=== PATIENT | male | born 1990 | race Caucasian/White ===

== ENCOUNTER 2018-06-18 19:01 | Emergency (ER) | payer BC, MEDICAID, OTHER ==
[~2018-06-18] VITALS: Ht 167.6 cm; Wt 78.9 kg
[~2018-06-18 19:01] MED LIST: ACHD5005 PO; ALBU17AE3 IH; ATEN-158 PO; CEPH-507 PO; CYCL10TA9 PO; DICY20TA57 PO; DOXY100C2 PO; FLUT1DIS28 IH; HYDR-3583 PO; HYDR25TA4 PO; ISOM1CAP11 PO; LACO100T2 PO; LISI20TA PO; NAPR-243 PO; OMEP40CA36 PO; PHEN30CA PO; SENN1TAB76 PO; [UNRECOGNIZED DRUG - CODE] PO
--- OUTSIDE RECORDS SUMMARY | 2018-06-18 19:18 | XMS REPORT ---
Author Author Rowdy Carpenter [facility] Address [address] [place], [place] [id number] Care Team Providers Care Sole Leveler Name Role Phone Rowdy Carpenter PCP Unavailable Allergies and Adverse Reactions Name Reaction Notes Morphine Sulfate kidney failure IV DYE, IODINE CONTAINING body gruber and itches Plan of Treatment Not available. Medications Active Name Start Date Estimated Completion Date SIG Comments lamotrigine 25 mg oral tablet take 1 tablet (50 mg) by oral route once daily at bedtime, on an increasing dose levetiracetam 1,000 mg oral tablet take 2 tablet (2,000 mg) by oral route every 12 hours phenytoin sodium extended 100 mg oral capsule take 2 capsules (200 mg) by oral route 2 times per day felodipine 2.5 mg oral tablet extended release 24 hr 03/25/2015 09/21/2015 take 1 tablet (2.5 mg) by oral route once daily for 30 days Problem List Description Status Onset Asthma Active Brain Neoplasm, Benign Active October 2014 Hypertension Active Vital Signs Date Time BP-Sys(mm[Hg] BP-Sarahi(mm[Hg]) HR(bpm) RR(rpm) Temp WT HT HC BMI BSA BMI Percentile O2 Sat(%) 03/25/2015 2:02:00 PM 148 mmHg 84 mmHg 81 bpm 20 rpm 97.9 F 159 lbs 66 in 25.66 kg/m2 1.83 m2 96 % Social History Name Description Comments Tobacco Former smoker chewing tobacco No Alcohol Use Single History of Procedures Not available. Results Summary Not available. History Of Immunizations Not available. History of Past Illness Name Date of Onset Comments Hypertension Asthma Brain Neoplasm, Benign October 2014 Stage 2 glioma Hypertension Mar 25 2015 2:06PM Payers Insurance Name Company Name Plan Name Plan Number Policy Number Policy Group Number [facility] Date [id number] N/A [facility] Comm [id number] Friday, 2014 History of Encounters Visit Date Visit Type Provider 03/25/2015 Office visit Rowdy Carpenter DO
--- OUTSIDE RECORDS SUMMARY | 2018-06-18 19:18 | XMS REPORT | Encounter Summary ---
Author Author [facility] Organization [facility] Address Unknown Phone Unavailable Care Team Providers Care Resp Therapist Name Role Phone Leticiarandy Mahnaz Zavala LINUX SERVER ENGINEER-BC Unavailable Tramaine Thomas MD Unavailable Soraya Vargas MD Unavailable Bradford Diaz MD Unavailable Ileana Rodriguez LINUX SERVER ENGINEER-DEGREASING SOLUTION RECLAIMER Unavailable Katherine Kendrick LINUX SERVER ENGINEER Unavailable Anahi Currie MD Unavailable Annie Lyons RN 2 Unavailable Kelly Moeller DO Unavailable Unavailable Delio Dillon MD Unavailable Unavailable Delio Xie MD Unavailable Unavailable Mariano Deshpande MD Unavailable Betsy Armstrong MD [id number] Cara Brice MD [id number] Cindy Andrews MD PCP Reason for Visit * Reason Comments Seizure seizure free for more than 2 years Encounter Details Care Team Description Date Type Department Mariano Deshpande MD [address] [place] [address] Complex partial seizures with consciousness impaired (HCC) ( Primary Dx); Low grade glioma of brain (HCC) 04/12/2018 Office Visit [facility] Yo[address] Stock [id number] [place] [address] Social History Date Tobacco Use Types Packs/Day Years Used Never Smoker Smokeless Tobacco: Former Quit: 10/10/2012 User Alcohol Use Drinks/Week oz/Week Comments No Sex Assigned at Date Recorded Not on file Industry Job Start Date Occupation Not on file Not on file Not on file Travel End Travel History Travel Start No recent travel history available. as of this encounter Last Filed Vital Signs Time Taken Vital Sign Reading 04/12/2018 12:28 PM SCREEN PRINTING CLOTH SPREADER Blood Pressure 129/83 04/12/2018 12:28 PM SCREEN PRINTING CLOTH SPREADER Pulse 102 04/12/2018 12:28 PM SCREEN PRINTING CLOTH SPREADER Temperature 37 C (98.6 F) - Respiratory Rate - - Oxygen Saturation - - Inhaled Oxygen - Concentration 04/12/2018 12:28 PM SCREEN PRINTING CLOTH SPREADER Weight 77.1 kg (170 lb) 04/12/2018 12:28 PM SCREEN PRINTING CLOTH SPREADER Height 167.6 cm (5' 6") 04/12/2018 12:28 PM SCREEN PRINTING CLOTH SPREADER Body Mass Index 27.44 in this encounter Functional Status Date of Assessment Functional Status Response 04/23/2016 Does the patient have a hearing impairment: No 04/23/2016 Does the patient have a visual impairment: Yes 04/23/2016 Does the patient have impaired ambulation: No 04/23/2016 Does the patient have an activity of daily living No (ADL) impairment: 04/23/2016 Does the patient have an instrumental activity of No daily living (IADL) impairment: Date of Assessment Cognitive Status Response 04/23/2016 Does the patient have a cognitive impairment: No as of this encounter Patient Instructions * Patient Instructions* Mariano Deshpande MD - 04/12/2018 1:30 PM SCREEN PRINTING CLOTH SPREADER You should not drive unless 6 months free of alteration of consciousness, not work in close proximity of machines with moving parts, swim unsupervised or to work at high places.You should shower (without accumulation of water) instead of taking a bath if unsupervised. Contact us if there is an exacerbation of the seizures or any side effects from the antiepileptic medications. Continue Keppra 500 mg twice daily continue dilantin 100 mg twice daily. EN PRINTING CLOTH SPREADER in this encounter Progress Notes * Mariano Deshpande MD - 04/12/2018 1:30 PM SCREEN PRINTING CLOTH SPREADER Date of Service: 04/12/2018 Subjective: Srini Kevin is a 27 y.o. male. History of Present Illness MEDICATIONS: Keppra 500 mg b.i.d. , phenytoin 100 mg b.i.d. CHIEF COMPLAINT: 6 month follow-up on seizures and irritability. HISTORY OF PRESENT ILLNESS: Mr. Kevin has been doing well since last visit. He has not had any seizures. No seizure since the last visit. He denies any new problem. He does not use CBD oil. He has not had any seizure since the last visit. 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 Last seizure was a tonic seizure without any lateralizing finding lasting 3 minutes, with postictal confusion lasting about 1 hour in the setting of tapering down Keppra due to irritability. The seizure happened on June 25, 2015. He did not have any aura. He was playing video game before then. He has not had any seizure since then. Dr. Armstrong is his oncologist in [place]. His last MRI was 1.5 weeks ago and it was stable according to the patient. PAST MEDICAL HISTORY: Reviewed and did not show any change from the source document. SOCIAL HISTORY: Reviewed and did not show any change from the source document. Allergies Allergen Reactions Contrast Dye Iv, Iodine Containing [Iodinated Contrast Media - Oral And Iv Dye] RASH and SHORTNESS OF BREATH Morphine SEE COMMENTS "my kidneys shut down" LABS: 12/17/2016: PHT 2.5, CMP normal except increased ALT (67), CBC normal. Review of Systems All other systems reviewed and are negative. Objective: levETIRAcetam (KEPPRA) 500 mg tablet Take 1 tablet by mouth twice daily. phenytoin SR (DILANTIN) 100 mg capsule Take 1 capsule by mouth twice daily. PYRIDOXINE HCL (VITAMIN B6) (VITAMIN B-6 PO) Take 1 Tab by mouth. Vitals: 04/12/18 1228 BP: 129/83 Pulse: 102 Temp: 37 C (98.6 F) Weight: 77.1 kg (170 lb) Height: 167.6 cm (66") Physical Exam Head was normocephalic. His language functions were intact. He is right- handed. His attention was intact. His short-term memory was intact. Cranial nerve examination showed normal cranial nerves II through XII. Motor examination showed 5/5 in all muscles with normal tone. The tendon reflexes were 2+ in all 4 extremities and toes were downgoing on the right, mute on the left side. Sensory examination showed decreased tough in left face, arm and leg. Cerebellar examination did not show any limb or gait ataxia. Gait examination showed normal gait and able to walk heel to toe. Assessment and Plan: 1. Localization-related epilepsy secondary to the right frontal astrocytoma. The patient's seizures are currently well-controlled with Dilantin and Keppra. 2. Right astrocytoma followed by Dr. Armstrong. 3. CBC, CMP, dilantin level MANAGEMENT AND PLAN During the visit I discussed my impression, recommended diagnostic studies, prognosis, risks and benefits of management, instructions for management, and importance of compliance. The patient is instructed not to drive unless 6 months free of alteration of consciousness, not to work in close proximity of machines with moving parts, not to swim unsupervised or to work at high places. The patient is to shower ( without accumulation of water) instead of taking a bath if unsupervised. FOCUSED HEALTH MAINTENANCE: Smoking cessation counseling: No smoker Discussed patient's BMI with him. The body mass index is 27.44 kg/m. and falls within the category of Overweight (25 to <30); Specialist visit only - will refer back to primary doctor for further care. FOLLOWUP PLAN I plan to see the patient back for follow-up in approximately 6 months. The patient is instructed to contact us if there is an exacerbation of the seizures or any side effects from the antiepileptic medications. Mariano Deshpande MD Translator/Interpreter [facility] Department of Neurology EN PRINTING CLOTH SPREADER in this encounter Plan of Treatment Order Schedule Name Priority Associated Diagnoses Expected: 04/12/2018, Expires: 04/12/2019 CBC Routine Complex partial seizures with consciousness impaired (HCC) Expected: 04/12/2018 (Approximate), Expires: 04/12/2019 COMPREHENSIVE METABOLIC PANEL Routine Complex partial seizures with consciousness impaired (HCC) Expected: 04/12/2018 (Approximate), Expires: 04/12/2019 PHENYTOIN, TOTAL (DILANTIN) Routine Complex partial seizures with consciousness impaired (HCC) as of this encounter Visit Diagnoses Diagnosis Complex partial seizures with consciousness impaired (HCC) - Primary Localization-related (focal) (partial) epilepsy and epileptic syndromes with complex partial seizures, without mention of intractable epilepsy Low grade glioma of brain (HCC) Malignant neoplasm of brain, unspecified site in this encounter
--- OUTSIDE RECORDS SUMMARY | 2018-06-18 19:18 | XMS REPORT | Clinical Summary ---
Author Author [facility] Organization [facility] Address Unknown Phone Unavailable Care Team Providers Care Geospatial Extractor Analysis Name Role Phone Kelsi Mahnaz Zavala AUTOMATIC TYPEWRITER INSPECTOR-BC Unavailable Tramaine Thomas MD Unavailable Soraya Vargas MD Unavailable Bradford Diaz MD Unavailable Ileana Rodriguez AUTOMATIC TYPEWRITER INSPECTOR-SUPERVISOR WATER SOFTENER SERVICE Unavailable Katherine Kendrick AUTOMATIC TYPEWRITER INSPECTOR Unavailable Anaih Currie MD Unavailable Annie Lyons RN 2 Unavailable Kelly Moeller DO Unavailable Unavailable Delio Dillon MD Unavailable Unavailable Delio Xie MD Unavailable Unavailable Mariano Deshpande MD Unavailable Betsy Armstrong MD [id number] Cara Brice MD [id number] Cindy Andrews MD PCP Source Comments Some departments are not documenting in the electronic medical record. If you do not see the information that you expected, contact Release of Information in the Health Information Management department at [phone] for further assistance in locating additional records.[facility] Allergies Comments Active Allergy Reactions Severity Noted Date Iodinated Contrast- Oral RASH, High 10/10/2014 And Iv Dye SHORTNESS OF BREATH "my kidneys shut down" Morphine SEE COMMENTS High 10/10/2014 Medications End Date Status Medication Sig Dispensed Refills Start Date Active levETIRAcetam (KEPPRA) Take one 180 tablet 3 500 mg tabletIndications: tablet by 8 Complex partial seizures mouth twice with consciousness daily. impaired (HCC) Active phenytoin SR (DILANTIN) Take one 180 capsule 3 100 mg capsule capsule by 8 mouth twice daily. Active Problems Problem Noted Date Seizure 10/21/2014 Low grade glioma of brain 10/10/2014 Asthma Hypertension Resolved Problems Problem Noted Date Resolved Date UTI (urinary tract infection) 10/26/2014 12/01/2014 Leukocytosis 10/22/2014 12/01/2014 On mechanically assisted ventilation 10/21/2014 12/01/2014 Encounters Care Team Description Date Type Specialty Mariano Deshpande MD Complex partial seizures with consciousness impaired (HCC) ( Primary Dx); Low grade glioma of brain (HCC) 04/12/2018 Office Visit Neurology from Last 3 Months Family History Medical History Relation Name Comments Diabetes Mother Diabetes Paternal Grandfather Hypertension Paternal Grandfather Diabetes Paternal Grandmother Hypertension Paternal Grandmother Relation Name Status Comments Father Other Mother Alive Paternal Grandfather Alive Paternal Grandmother Alive Social History Date Tobacco Use Types Packs/Day Years Used Never Smoker Smokeless Tobacco: Former Quit: 10/10/2012 User Alcohol Use Drinks/Week oz/Week Comments No Sex Assigned at Date Recorded Not on file Industry Job Start Date Occupation Not on file Not on file Not on file Travel End Travel History Travel Start No recent travel history available. Last Filed Vital Signs Time Taken Vital Sign Reading 04/12/2018 12:28 PM TOY CONSULTANT Blood Pressure 129/83 04/12/2018 12:28 PM TOY CONSULTANT Pulse 102 04/12/2018 12:28 PM TOY CONSULTANT Temperature 37 C (98.6 F) 04/23/2016 10:40 AM TOY CONSULTANT Respiratory Rate 18 04/23/2016 10:40 AM TOY CONSULTANT Oxygen Saturation 99% - Inhaled Oxygen - Concentration 04/12/2018 12:28 PM TOY CONSULTANT Weight 77.1 kg (170 lb) 04/12/2018 12:28 PM TOY CONSULTANT Height 167.6 cm (5' 6") 04/12/2018 12:28 PM TOY CONSULTANT Body Mass Index 27.44 Plan of Treatment Health Maintenance Due Date Last Done Comments PHYSICAL (COMPREHENSIVE) 09/18/1999 EXAM HIV SCREENING 09/18/2007 DTAP/TDAP VACCINES (1 - 2010 Tdap) INFLUENZA VACCINE 12/15/2017 03/05/2005 Results Not on filefrom Last 3 Months Insurance Payer Benefit Subscriber ID Type Phone Address Plan / Group CIGNA CIGNA NON xxxxxxxxxxx HMO PPO/EPO [facility] MEDICAID [place] [facility] xxxxxxxxxxx Medicaid [employer] [place] Advance Directives Patient has advance care planning documents, and code status on file. For more information, please contact: [facility] [address] [place] [address] Date Inactivated Comments Code Status Date Activated 10/31/2014 12:48 PM Full Code 10/10/2014 5:24 AM Provider has discussed Code Status Yes w/Patient or Family?
--- OUTSIDE RECORDS SUMMARY | 2018-06-18 19:21 | XMS REPORT | Continuity of Care Document ---
Author Author [facility] Address Unknown Phone Unavailable Allergies Active Description Code Type Severity Reaction Onset Reported/Identified Relationship to Patient Clinical Status Yes TAWANDA INHIBITORS UNKNOWN UNKNOWN Yes CONTRAST SEVERE DERMATOLOGICAL - ZAYDA Yes MORPHINE SEVERE OTHER Yes morphine [id number] Drug Allergy Mild N/A 04/13/2009 Yes Iodinated Contrast Media - IV Dye [id number] Drug Allergy Unknown N/A 10/31 Yes Iodinated Contrast Media - Oral and [id number] Drug Allergy Unknown N/A Medications There is no data. Problems Date Dx Coded Attending Type Code Diagnosis Diagnosed By 03/23/2010 Ot 923.21 03/23/2010 Ot 959.3 03/23/2010 Ot E000.8 03/23/2010 Ot E007.0 03/23/2010 Ot E849.4 03/23/2010 Ot E886.0 06/23/2010 Ot 372.06 06/23/2010 Ot 918.1 06/23/2010 Ot 918.2 06/23/2010 Ot E000.8 06/23/2010 Ot E849.6 06/23/2010 Ot E869.8 06/23/2010 Ot E914 09/19/2010 Ot 815.00 FX METACARPAL NOS-CLOSED 09/19/2010 Ot 842.00 SPRAIN OF WRIST NOS 09/19/2010 Ot 959.3 ELB/FOREARM/ WRST INJ NOS 09/19/2010 Ot E000.8 OTHER EXTERNAL CAUSE STATUS 09/19/2010 Ot E849.0 ACCIDENT IN HOME 09/19/2010 Ot E880.9 FALL ON STAIR/STEP NEC 10/03/2010 Ot 913.4 10/03/2010 Ot E000.8 10/03/2010 Ot E849.0 10/03/2010 Ot E906.4 12/21/2010 Ot 847.0 12/21/2010 Ot 850.0 12/21/2010 Ot 920 12/21/2010 Ot 959.01 12/21/2010 Ot E000.8 12/21/2010 Ot E812.0 01/11/2011 Ot 784.0 08/23/2011 Ot 845.00 08/23/2011 Ot 959.7 08/23/2011 Ot E000.8 08/23/2011 Ot E007.6 08/23/2011 Ot E849.0 08/23/2011 Ot E927.0 11/09/2011 Ot 881.02 11/09/2011 Ot E000.8 11/09/2011 Ot E849.0 11/09/2011 Ot E927.0 11/17/2011 Ot V58.32 01/25/2012 Ot 574.20 01/25/2012 Ot 789.00 02/16/2012 Ot 530.81 02/16/2012 Ot 535.40 02/16/2012 Ot 575.11 02/02/2014 TYLER JONES APRN Ot 401.9 HYPERTENSION NOS 02/02/2014 TYLER JONES APRN Ot V58.69 OT MED,LT,CURRENT USE 03/23/2014 BRIGETTE SUMMERS DO Ot 401.9 HYPERTENSION NOS 08/09/2014 Ot 558.9 08/09/2014 Ot 780.79 08/09/2014 Ot 789.00 08/09/2014 Ot 558.9 08/09/2014 Ot 780.79 08/09/2014 Ot 789.00 10/09/2014 Ot 789.00 10/09/2014 Ot 787.01 10/09/2014 Ot 789.01 10/09/2014 Ot 787.01 10/09/2014 Ot 789.01 10/09/2014 Ot 575.8 10/09/2014 Ot 787.02 10/09/2014 Ot 789.01 10/09/2014 Ot V72.83 10/09/2014 Ot V74.8 10/10/2014 STEPHANIE OLMOS Ot 368.8 VISUAL DISTURBANCES NEC 10/10/2014 STEPHANIE OLMOS Ot 784.0 HEADACHE 10/10/2014 STEPHANIE OLMOS Ot 784.2 SWELLING IN HEAD NECK 10/30/2014 Ot 789.00 10/30/2014 Ot 787.01 10/30/2014 Ot 789.01 10/30/2014 Ot 787.01 10/30/2014 Ot 789.01 10/30/2014 Ot 575.8 10/30/2014 Ot 787.02 10/30/2014 Ot 789.01 10/30/2014 Ot V72.83 10/30/2014 Ot V74.8 10/30/2014 Ot 789.00 10/30/2014 Ot 787.01 10/30/2014 Ot 789.01 10/30/2014 Ot 787.01 10/30/2014 Ot 789.01 10/30/2014 Ot 575.8 10/30/2014 Ot 787.02 10/30/2014 Ot 789.01 10/30/2014 Ot V72.83 10/30/2014 Ot V74.8 11/06/2014 ASHWIN RIVERA MD Ot 401.9 HYPERTENSION NOS 11/06/2014 ASHWIN RIVERA MD Ot V10.85 HX OF BRAIN MALIGNANCY 11/06/2014 ASHWIN RIVERA MD Ot V15.82 HISTORY OF TOBACCO USE 11/06/2014 ASHWIN RIVERA MD Ot V57.89 REHABILITATION PROC NEC 11/06/2014 ASHWIN RIVERA MD Ot V58.42 AFTERCARE POST SURGERY NEOPLASM 11/30/2014 FREYA GRAVES MD Ot 239.6 11/30/2014 FREYA GRAVES MD Ot 780.39 12/13/2014 FREYA GRAVES MD Ot 239.6 12/13/2014 FREYA GRAVES MD Ot 780.39 12/13/2014 FREYA GRAVES MD Ot 239.6 12/13/2014 FREYA GRAVES MD Ot 780.39 12/14/2014 FREYA GRAVES MD Ot 239.6 12/14/2014 FREYA GRAVES MD Ot 780.39 12/14/2014 FREYA GRAVES MD Ot 239.6 12/14/2014 FREYA GRAVES MD Ot 780.39 12/14/2014 FREYA GRAVES MD Ot 239.6 12/14/2014 FREYA GRAVES MD Ot 780.39 12/19/2014 Ot 558.9 12/19/2014 Ot 780.79 12/19/2014 Ot 789.00 12/24/2014 STEPHANIE OLMOS Ot 704.8 HAIR DISEASES NEC 12/24/2014 STEPHANIE OLMOS Ot 782.1 NONSPECIF SKIN ERUPT NEC 01/03/2015 STEPHANIE OLMOS Ot 780.97 ALTERED MENTAL STATUS 01/03/2015 STEPHANIE OLMOS Ot E936.1 ADV EFF HYDANTOIN DERIV 01/03/2015 STEPHANIE OLMOS Ot V12.41 HX BENIGN NEOPLASM/BRAIN 01/10/2015 ARAVIND PRESTON MD Ot 368.2 DIPLOPIA 01/10/2015 ARAVIND PRESTON MD Ot 780.4 DIZZINESS AND GIDDINESS 01/10/2015 ARAVIND PRESTON MD Ot V58.69 OT MED,LT,CURRENT USE 01/31/2015 STEPHANIE OLMOS Ot 239.6 01/31/2015 STEPHANIE OLMOS Ot V58.69 02/08/2015 Ot 558.9 02/08/2015 Ot 780.79 02/08/2015 Ot 789.00 02/18/2015 FREYA GRAVES MD Ot 239.6 02/18/2015 FREYA GRAVES MD Ot 780.39 02/18/2015 FREYA GRAVES MD Ot 239.6 02/18/2015 FREYA GRAVES MD Ot 780.39 02/18/2015 FREYA GRAVES MD Ot 239.6 02/18/2015 FREYA GRAVES MD Ot 780.39 02/18/2015 STEPHANIE OLMOS Ot 239.6 02/18/2015 STEPHANIE OLMOS Ot V58.69 03/18/2015 FREYA GRAVES MD Ot 239.6 03/18/2015 FREYA GRAVES MD Ot 780.39 03/18/2015 FREYA GRAVES MD Ot 239.6 03/18/2015 FREYA GRAVES MD Ot 780.39 03/18/2015 FREYA GRAVES MD Ot 239.6 03/18/2015 FREYA GRAVES MD Ot 780.39 03/18/2015 STEPHANIE OLMOS Ot 239.6 03/18/2015 STEPHANIE OLMOS Ot V58.69 03/26/2015 FREYA GRAVES MD Ot 239.6 03/26/2015 FREYA GRAVES MD Ot 780.39 03/26/2015 FREYA GRAVES MD B Ot 239.6 03/26/2015 FREYA GRAVES MD B Ot 780.39 03/26/2015 FREYA GRAVES MD B Ot 239.6 03/26/2015 FREYA GRAVES MD B Ot 780.39 03/26/2015 STEPHANIE OLMOS Ot 239.6 03/26/2015 STEPHANIE OLMOS Ot V58.69 03/26/2015 FREYA GRAVES MD B Ot 239.6 03/26/2015 FREYA GRAVES MD B Ot 780.39 03/26/2015 FREYA GRAVES MD B Ot 239.6 03/26/2015 FREYA GRAVES MD B Ot 780.39 03/26/2015 FREYA GRAVES MD B Ot 239.6 03/26/2015 FREYA GRAVES MD B Ot 780.39 03/26/2015 STEPHANIE OLMOS Ot 239.6 03/26/2015 STEPHANIE OLMOS Ot V58.69 07/04/2015 OTHER, UNLISTED Ot N46.9 07/12/2015 OTHER, UNLISTED Ot N46.9 07/23/2015 OTHER, UNLISTED Ot N46.9 09/05/2015 OTHER, UNLISTED Ot N46.9 MALE INFERTILITY, UNSPECIFIED 11/03/2015 Ot S51.812A LACERATION WITHOUT FOREIGN BODY OF LEFT 11/03/2015 Ot W27.2XXA CONTACT WITH SCISSORS, INITIAL ENCOUNTER 11/03/[address] IN SINGLE-FAMILY (PRIVATE) DOM 11/03/2015 Ot Y99.8 OTHER EXTERNAL CAUSE STATUS 11/03/2015 Ot Z23 ENCOUNTER FOR IMMUNIZATION 11/03/2015 Ot Z87.891 PERSONAL HISTORY OF NICOTINE DEPENDENCE 11/04/2015 FREYA GRAVES MD Ot 239.6 BRAIN NEOPLASM NOS 11/04/2015 FREYA GRAVES MD Ot 780.39 OTHER CONVULSIONS 11/04/2015 FREYA GRAVES MD Ot 239.6 BRAIN NEOPLASM NOS 11/04/2015 FREYA GRAVES MD Ot 780.39 OTHER CONVULSIONS 11/04/2015 FREYA GRAVES MD Ot 239.6 BRAIN NEOPLASM NOS 11/04/2015 FREYA GRAVES MD Ot 780.39 OTHER CONVULSIONS 11/04/2015 STEPHANIE OLMOS Ot 239.6 BRAIN NEOPLASM NOS 11/04/2015 STEPHANIE OLMOS Ot V58.69 OTH MED,LT,CURRENT USE 11/04/2015 OTHER, UNLISTED Ot N46.9 MALE INFERTILITY, UNSPECIFIED 11/14/2015 ARAVIND PRESTON MD Ot S41.112D LACERATION W/O FOREIGN BODY OF LEFT UPPE 11/15/2015 ARAVIND PRESTON MD Ot S41.112D LACERATION W/O FOREIGN BODY OF LEFT UPPE 11/26/2015 FREYA GRAVES MD Ot 239.6 BRAIN NEOPLASM NOS 11/26/2015 FREYA GRAVES MD Ot 780.39 OTHER CONVULSIONS 11/26/2015 FREYA GRAVES MD Ot 239.6 BRAIN NEOPLASM NOS 11/26/2015 FREYA GRAVES MD Ot 780.39 OTHER CONVULSIONS 11/26/2015 FREYA GRAVES MD Ot 239.6 BRAIN NEOPLASM NOS 11/26/2015 FREYA GRAVES MD Ot 780.39 OTHER CONVULSIONS 11/26/2015 STEPHANIE OLMOS Ot 239.6 BRAIN NEOPLASM NOS 11/26/2015 STEPHANIE OLMOS Ot V58.69 OTH MED,LT,CURRENT USE 11/26/2015 OTHER, UNLISTED Ot N46.9 MALE INFERTILITY, UNSPECIFIED 01/17/2016 FREYA GRAVES MD Ot 239.6 BRAIN NEOPLASM NOS 01/17/2016 FREYA GRAVES MD Ot 780.39 OTHER CONVULSIONS 01/17/2016 FREYA GRAVES MD Ot 239.6 BRAIN NEOPLASM NOS 01/17/2016 FREYA GRAVES MD Ot 780.39 OTHER CONVULSIONS 01/17/2016 FREYA GRAVES MD B Ot 239.6 BRAIN NEOPLASM NOS 01/17/2016 FREYA GRAVES MD B Ot 780.39 OTHER CONVULSIONS 01/17/2016 STEPHANIE OLMOS Ot 239.6 BRAIN NEOPLASM NOS 01/17/2016 STEPHANIE OLMOS Ot V58.69 OTH MED,LT,CURRENT USE 01/17/2016 OTHER, UNLISTED Ot N46.9 MALE INFERTILITY, UNSPECIFIED 03/01/2016 AMA GRAVES MDZ B Ot 239.6 BRAIN NEOPLASM NOS 03/01/2016 STAR HYDE, JESEKOZ B Ot 780.39 OTHER CONVULSIONS 03/01/2016 JESE GRAVES MDKOZ B Ot 239.6 BRAIN NEOPLASM NOS 03/01/2016 STAR HYDE, ROUKOZ B Ot 780.39 OTHER CONVULSIONS 03/01/2016 AMA GRAVES MDZ B Ot 239.6 BRAIN NEOPLASM NOS 03/01/2016 JESE GRAVES MDKOZ B Ot 780.39 OTHER CONVULSIONS 03/01/2016 CADE STEPHANIE FLOWERS Ot 239.6 BRAIN NEOPLASM NOS 03/01/2016 STEPHANIE OLMOS Ot V58.69 OTH MED,LT,CURRENT USE 03/01/2016 OTHER, UNLISTED Ot N46.9 MALE INFERTILITY, UNSPECIFIED 03/01/2016 TYLER JONES APRN Ot I10 ESSENTIAL (PRIMARY) HYPERTENSION 03/01/2016 TYLER JONES APRN Ot S93.401A SPRAIN OF UNSPECIFIED LIGAMENT OF RIGHT 03/01/2016 TYLER JONES APRN Ot S99.911A UNSPECIFIED INJURY OF RIGHT ANKLE, INITI 03/01/2016 TYLER JONES APRN Ot X58.XXXA EXPOSURE TO OTHER SPECIFIED FACTORS, INI 03/01/2016 TYLER JONES APRN Ot Y92.015 PRIVATE GARAGE OF SINGLE-FAMILY (PRIVATE 03/01/2016 TYLER JONES APRN Ot Y93.01 ACTIVITY, WALKING, MARCHING AND HIKING 03/01/2016 TYLER JONES APRN Ot Y99.8 OTHER EXTERNAL CAUSE STATUS 03/01/2016 TYLER JONES APRN Ot Z79.899 OTHER PRISON (CURRENT) DRUG THERAPY 03/04/2016 TYLER JONES APRN Ot I10 ESSENTIAL (PRIMARY) HYPERTENSION 03/04/2016 TYLER JONES APRN Ot S93.401A SPRAIN OF UNSPECIFIED LIGAMENT OF RIGHT 03/04/2016 TYLER JONES APRN Ot S99.911A UNSPECIFIED INJURY OF RIGHT ANKLE, INITI 03/04/2016 TYLER JONES APRN Ot X58.XXXA EXPOSURE TO OTHER SPECIFIED FACTORS, INI 03/04/2016 TYLER JONES APRN Ot Y92.015 PRIVATE GARAGE OF SINGLE-FAMILY (PRIVATE 03/04/2016 TYLER JONES APRN Ot Y93.01 ACTIVITY, WALKING, MARCHING AND HIKING 03/04/2016 TYLER JONES APRN Ot Y99.8 OTHER EXTERNAL CAUSE STATUS 03/04/2016 TYLER JONES APRN Ot Z79.899 OTHER PRISON (CURRENT) DRUG THERAPY 03/04/2016 TYLER JONES APRN Ot I10 ESSENTIAL (PRIMARY) HYPERTENSION 03/04/2016 TYLER JONES APRN Ot S93.401A SPRAIN OF UNSPECIFIED LIGAMENT OF RIGHT 03/04/2016 TYLER JONES APRN Ot S99.911A UNSPECIFIED INJURY OF RIGHT ANKLE, INITI 03/04/2016 TYLER JONES APRN Ot X58.XXXA EXPOSURE TO OTHER SPECIFIED FACTORS, INI 03/04/2016 TYLER JONES APRN Ot Y92.015 PRIVATE GARAGE OF SINGLE-FAMILY (PRIVATE 03/04/2016 TYLER JONES APRN Ot Y93.01 ACTIVITY, WALKING, MARCHING AND HIKING 03/04/2016 TYLER JONES APRN Ot Y99.8 OTHER EXTERNAL CAUSE STATUS 03/04/2016 TYLER JONES APRN Ot Z79.899 OTHER REMELTER (CURRENT) DRUG THERAPY 03/18/2016 TYLER JONES APRN Ot I10 ESSENTIAL (PRIMARY) HYPERTENSION 03/18/2016 TYLER JONES APRN Ot S93.401A SPRAIN OF UNSPECIFIED LIGAMENT OF RIGHT 03/18/2016 TYLER JONES APRN Ot S99.911A UNSPECIFIED INJURY OF RIGHT ANKLE, INITI 03/18/2016 TYLER JONES APRN Ot X58.XXXA EXPOSURE TO OTHER SPECIFIED FACTORS, INI 03/18/2016 TYLER JONES APRN Ot Y92.015 PRIVATE GARAGE OF SINGLE-FAMILY (PRIVATE 03/18/2016 TYLER JONES APRN Ot Y93.01 ACTIVITY, WALKING, MARCHING AND HIKING 03/18/2016 TYLER JONES APRN Ot Y99.8 OTHER EXTERNAL CAUSE STATUS 03/18/2016 JONES, TYLER Hernandez ADMIN PROG COORD Ot Z79.899 OTHER REMELTER (CURRENT) DRUG THERAPY 05/20/2016 FREYA GRAVES MD Ot 239.6 BRAIN NEOPLASM NOS 05/20/2016 FREYA GRAVES MD Ot 780.39 OTHER CONVULSIONS 05/20/2016 FREYA GRAVES MD Ot 239.6 BRAIN NEOPLASM NOS 05/20/2016 FREYA GRAVES MD Ot 780.39 OTHER CONVULSIONS 05/20/2016 FREYA GRAVES MD Ot 239.6 BRAIN NEOPLASM NOS 05/20/2016 FREYA GRAVES MD Ot 780.39 OTHER CONVULSIONS 05/20/2016 STEPHANIE OLMOS Ot 239.6 BRAIN NEOPLASM NOS 05/20/2016 STEPHANIE OLMOS Ot V58.69 OTH MED,LT,CURRENT USE 05/20/2016 OTHER, UNLISTED Ot N46.9 MALE INFERTILITY, UNSPECIFIED 06/03/2016 FREYA GRAVES MD Ot 239.6 BRAIN NEOPLASM NOS 06/03/2016 FREYA GRAVES MD B Ot 780.39 OTHER CONVULSIONS 06/03/2016 FREYA GRAVES MD Ot 239.6 BRAIN NEOPLASM NOS 06/03/2016 FREYA GRAVES MD Ot 780.39 OTHER CONVULSIONS 06/03/2016 FREYA GRAVES MD B Ot 239.6 BRAIN NEOPLASM NOS 06/03/2016 FREYA GRAVES MD B Ot 780.39 OTHER CONVULSIONS 06/03/2016 STEPHANIE OLMOS Ot 239.6 BRAIN NEOPLASM NOS 06/03/2016 STEPHANIE OLMOS Ot V58.69 OTH MED,LT,CURRENT USE 06/03/2016 OTHER, UNLISTED Ot N46.9 MALE INFERTILITY, UNSPECIFIED 06/12/2016 OTHER, UNLISTED Ot N46.9 MALE INFERTILITY, UNSPECIFIED 04/12/2017 ROLAND CRAWFORD V12.49 PERSONAL HISTORY OF OTHER DISORDERS OF NERVOUS SYSTEM AND SENSE ORGANS 04/12/2017 ROLAND CRAWFORD V70.0 ROUTINE GENERAL MEDICAL EXAMINATION AT A HEALTH CARE FACILITY 04/12/2017 ROLAND CRAWFORD Z00.01 ENCOUNTER FOR GENERAL ADULT MEDICAL EXAMINATION WITH ABNORMAL FINDINGS 04/12/2017 ROLAND CRAWFORD Z86.69 PERSONAL HISTORY OF OTHER DISEASES OF THE NERVOUS SYSTEM AND SENSE ORGANS 04/12/2017 GIOVANNA CRAWFORDHEL W 462 ACUTE PHARYNGITIS 04/12/2017 YVETTE ROLAND [place] J02.9 ACUTE PHARYNGITIS, UNSPECIFIED 04/12/2017 GIOVANNA CRAWFORDGABRIELA [place] V12.49 PERSONAL HISTORY OF OTHER DISORDERS OF NERVOUS SYSTEM AND SENSE ORGANS 04/12/2017 GIOVANNA CRAWFORDGABRIELA [place] V70.0 ROUTINE GENERAL MEDICAL EXAMINATION AT A HEALTH CARE FACILITY 04/12/2017 CRAWFORDGIOVANNAROLAND W Z00.01 ENCOUNTER FOR GENERAL ADULT MEDICAL EXAMINATION WITH ABNORMAL FINDINGS 04/12/2017 CRAWFORDGIOVANNAROLAND W Z86.69 PERSONAL HISTORY OF OTHER DISEASES OF THE NERVOUS SYSTEM AND SENSE ORGANS 04/12/2017 CRAWFORDGIOVANNAROLAND W 462 ACUTE PHARYNGITIS 04/12/2017 GIOVANNA CRAWFORDGABRIELA [place] J02.9 ACUTE PHARYNGITIS, UNSPECIFIED 04/12/2017 GIOVANNA CRAWFORDGABRIELA [place] V12.49 PERSONAL HISTORY OF OTHER DISORDERS OF NERVOUS SYSTEM AND SENSE ORGANS 04/12/2017 YVETTE ROLAND W V70.0 ROUTINE GENERAL MEDICAL EXAMINATION AT A HEALTH CARE FACILITY 04/12/2017 GIOVANNA CRAWFORDGABRIELA [place] Z00.01 ENCOUNTER FOR GENERAL ADULT MEDICAL EXAMINATION WITH ABNORMAL FINDINGS 04/12/2017 CRAWFORDROLAND ACE Z86.69 PERSONAL HISTORY OF OTHER DISEASES OF THE NERVOUS SYSTEM AND SENSE ORGANS 04/12/2017 GIOVANNA CRAWFORDGABRIELA [place] 462 ACUTE PHARYNGITIS 04/12/2017 GIOVANNA CRAWFORDGABRIELA [place] J02.9 ACUTE PHARYNGITIS, UNSPECIFIED 04/12/2017 CRAWFORDROLAND ACE V12.49 PERSONAL HISTORY OF OTHER DISORDERS OF NERVOUS SYSTEM AND SENSE ORGANS 04/12/2017 CRAWFORDGIOVANNAROLAND W V70.0 ROUTINE GENERAL MEDICAL EXAMINATION AT A HEALTH CARE FACILITY 04/12/2017 CRAWFORDGIOVANNAROLAND W Z00.01 ENCOUNTER FOR GENERAL ADULT MEDICAL EXAMINATION WITH ABNORMAL FINDINGS 04/12/2017 CRAWFORDROLAND ACE Z86.69 PERSONAL HISTORY OF OTHER DISEASES OF THE NERVOUS SYSTEM AND SENSE ORGANS Procedures There is no data. Results Test Result Range Thyroid Stimulating Hormone - 10/13/16 08:50 TSH 2.59 mIU/mL 0.32-5.00 Holter Monitor 48 hour - 10/20/16 12:43 Holter Monitor 48 Hour Complete Dilantin - 04/12/17 11:30 Dilantin 2.9 ug/mL 10.0-20.0 Hepatitis Panel, Acute - 04/12/17 11:30 Hep A Ab, IgM NEGATIVE NEGATIVE HBsAg Screen NEGATIVE NEGATIVE Hep B Core Ab, IgM NEGATIVE NEGATIVE Hep C Virus Ab <0.1 S/CO RATIO 0.0-0.9 Hepatitis Panel (4) - 04/12/17 11:30 HBsAg Screen Negative Negative Hep A Ab, IgM Negative Negative Hep B Core Ab, IgM Negative Negative Hep C Virus Ab <0.1 s/co ratio 0.0-0.9 Encounters ACCT No. Visit Date/Time Discharge Status Pt. Type Provider Facility Loc./Unit Complaint [id number] 12/17/2015 13:16:38 12/17/2015 23:59:59 CLS Outpatient [id number] 03/01/2016 14:41:00 03/01/2016 16:15:00 DIS Emergency TYLER JONES APRN [facility] ER L ANKLE INJ/SWELLING [id number] 11/14/2015 13:33:00 11/14/2015 13:42:00 DIS Emergency ARAVIND PRESTON MD [facility] ER SUTURE REMOVAL [id number] 09/06/2015 00:08:00 09/06/2015 23:59:59 CLS Preadmit OTHER, UNLISTED [facility] LAB INFERTILITY [id number] 06/07/2015 10:20:00 09/05/2015 00:01:00 DIS Outpatient OTHER, UNLISTED [facility] LAB INFERTILITY [id number] 01/10/2015 11:49:00 01/10/2015 23:59:59 CLS Outpatient STEPHANIE OLMOS [facility] LAB DILATIN TOXICETY [id number] 01/10/2015 13:31:00 01/10/2015 15:02:00 DIS Emergency ARAVIND PRESTON MD [facility] ER IRR LAB RESULTS [id number] 01/03/2015 11:00:00 01/03/2015 15:04:00 DIS Emergency STEPHANIE OLMOS [facility] ER BLURRY VISION DIZZINESS SLURRED SPEECH [id number] 12/24/2014 09:57:00 12/24/2014 13:20:00 DIS Emergency STEPHANIE OLMOS [facility] ER RASH/HANDS SWELLING [id number] 11/27/2014 15:30:00 11/27/2014 23:59:59 CLS Outpatient FREYA GRAVES MD [facility] BRAIN TUMOR, SEIZURES [id number] 11/18/2014 14:45:00 11/18/2014 23:59:59 CLS Outpatient FREYA GRAVES MD [facility] BRAIN TUMOR, SEIZURES [id number] 11/13/2014 10:30:00 11/13/2014 23:59:59 CLS Outpatient FREYA GRAVES MD [facility] SEIZURES, BRAIN TUMOR [id number] 10/31/2014 14:14:00 11/06/2014 18:00:00 DIS Inpatient ASHWIN RIVERA MD [facility] IRF DEBILITY [id number] 10/09/2014 20:21:00 10/10/2014 00:10:00 DIS Emergency STEPHANIE OLMOS [facility] ER PRESSURE L SIDE OF THE HEAD [id number] 03/23/2014 21:56:00 03/23/2014 22:58:00 DIS Emergency BRIGETTE SUMMERS DO [facility] ER ELEVATED BP [id number] 02/02/2014 12:23:00 02/02/2014 13:38:00 DIS Emergency TYLER JONES APRN [facility] ER ELEV BP [id number] 01/23/2014 15:38:00 01/23/2014 23:59:59 CLS Outpatient SONU BOYCE DO [facility] OCC [id number] 01/01/2014 12:36:00 01/01/2014 23:59:59 CLS Outpatient TARIQ GUERRERO [facility] QUICK [id number] 05/20/2016 12:25:00 Document Registration [id number] 05/20/2016 12:25:00 Document Registration [id number] 05/20/2016 12:25:00 Document Registration [id number] 11/04/2015 10:13:00 Document Registration [id number] 08/09/2014 15:33:00 Document Registration [id number] 02/16/2012 05:47:00 Document Registration [id number] 02/11/2012 14:51:00 Document Registration [id number] 01/29/2012 11:27:00 Document Registration [id number] 01/27/2012 16:35:00 Document Registration [id number] 01/26/2012 08:26:00 Document Registration [id number] 01/25/2012 17:51:00 Document Registration [id number] 11/17/2011 17:58:00 Document Registration [id number] 11/09/2011 15:46:00 Document Registration [id number] 08/23/2011 16:53:00 Document Registration [id number] 01/11/2011 14:22:00 Document Registration [id number] 12/21/2010 16:40:00 Document Registration [id number] 10/02/2010 23:05:00 Document Registration [id number] 09/19/2010 21:22:00 Document Registration [id number] 06/23/2010 11:16:00 Document Registration [id number] 03/23/2010 09:36:00 Document Registration [id number] 01/30/2010 12:51:00 Document Registration [id number] 03/25/2015 14:31:18 03/25/2015 23:59:59 CLS Outpatient Rowdy Carpenter [id number] 04/12/2017 11:29:00 04/12/2017 23:59:00 DIS Outpatient ROLAND CRAWFORD [id number] 10/20/2016 12:40:00 10/20/2016 23:59:00 DIS Outpatient ROLAND CRAWFORD [id number] 10/13/2016 11:42:00 10/13/2016 23:59:00 DIS Outpatient ROLAND CRAWFORD [id number] 04/15/2017 14:18:00 Document Registration [id number] 01/10/2015 13:32:19 ACT Document Registration
--- NOTE | 2018-06-18 19:42 | ED Upper Extremity ---
General Chief Complaint: Laceration Stated Complaint: L INDEX FINGER BLEEDING Source: patient Exam Limitations: no limitations History of Present Illness Date Seen by Provider: Jun 18, 2018 Time Seen by Provider: 19:40 Initial Comments To ER with laceration of the right pointer finger. This began about 5:30 this evening when he pinched this area between a wrench and the front fender of a car that he was working on. Onset: just prior to arrival Severity: moderate Pain/Injury Location: right shoulder Method of Injury: direct blow Modifying Factors: Improves With Movement Allergies and Home Medications Allergies Coded Allergies: morphine (Unverified Allergy, Mild, 04/13/09) Iodinated Contrast Media - IV Dye (Verified Allergy, Unknown, 10/31/14) Home Medications Cephalexin 500 Mg Capsule, 500 MG PO TID Prescribed by: TYLER JONES on 11/03/15 1108 Levetiracetam 1,000 Mg Tablet, 2,000 MG PO BID Prescribed by: ABDON HAYES on 11/06/14 1219 Phenytoin Sodium 30 Mg Capsule, 16 CAP PO HS Prescribed by: ABDON HAYES on 11/06/14 1224 Patient Home Medication List Home Medication List Reviewed: Yes Review of Systems Constitutional: see HPI EENTM: see HPI Respiratory: no symptoms reported Cardiovascular: no symptoms reported Genitourinary: no symptoms reported Musculoskeletal: no symptoms reported Skin: no symptoms reported Psychiatric/Neurological: No Symptoms Reported Past Zwcnqla-Ujbkzr-Quaqqq Hx Patient Social History Recent Foreign Travel: No Contact w/Someone Who Travel: No Recent Hopitalizations: No Immunizations Up To Date Tetanus Booster (TDap): More than 5yrs Seasonal Allergies Seasonal Allergies: No Past Medical History Appendectomy, Gallbladder, Tonsillectomy Asthma Hypertension Reproductive Disorders: No Sexually Transmitted Disease: No HIV/AIDS: No Gall Bladder Disease Adverse Reaction/Blood Tranf: No Family Medical History Asthma 19 MOTHER G8 BROTHER Diabetes mellitus 19 MOTHER No Pertinent Family Hx Physical Exam Vital Signs Capillary Refill : Height, Weight, BMI Height: 5'7" Weight: 167lbs. 8oz. [id number]; 29.05 BMI Method:Stated General Appearance: WD/WN, no apparent distress HEENT: PERRL/EOMI, normal ENT inspection Respiratory: no respiratory distress, no accessory muscle use Elbow/Forearm: normal inspection, non-tender Wrist: Yes normal inspection, Yes non-tender Hand: Right, laceration (1 cm laceration with depth to the subcutaneous tissue , rather shallow to the proximal phalanx of left pointer finger. There is no active bleeding and this does not require suture.) Neurologic/Psychiatric: alert, normal mood/affect, oriented x 3 Skin: normal color, warm/dry Procedures/Interventions Suture Size: 5-0 Departure Impression Primary Impression: Skin laceration Disposition: 01 HOME, SELF-CARE Condition: Stable Departure-Patient Inst. Decision time for Depature: 19:42 Referrals: ROLAND CRAWFORD MD (PCP/Family) Primary Care Physician Patient Instructions: Laceration Repair With Stitches (DC) Add. Discharge Instructions: 1. Change the bandage twice daily. Wash this with soap and water twice daily. All discharge instructions reviewed with patient and/or family. Voiced understanding. TYLER JONES APRN Jun 18, 2018 19:42
--- NOTE | 2018-06-18 19:50 | NUR ---
Pt's finger cleaned with sterile water, soap, triple antibiotic ointment applied and bandaid applied to finger.
[2018-06-18 19:53] VITALS: BP 138/84
== END 2018-06-18 19:53 | disposition home or self-care (01) ==
LOC: EDUNIT# 19:01 → ER 19:03
DX: S61.210A Laceration without foreign body of right index finger without damage to nail, initial encounter (principal); J45.909 Unspecified asthma, uncomplicated; I10 Essential (primary) hypertension; Z87.448 Personal history of other diseases of urinary system; Z88.5 Allergy status to narcotic agent; Z91.041 Radiographic dye allergy status; Z90.89 Acquired absence of other organs; Z90.49 Acquired absence of other specified parts of digestive tract; W22.09XA Striking against other stationary object, initial encounter
CPT/HCPCS: 99282

== ENCOUNTER 2020-11-06 11:30 | Outpatient (RCR) | payer BC, OTHER ==
[2021-01-20] MEDS ORDERED: DOXY100T2 PO (13:32)
== END 2021-02-04 | disposition home or self-care (01) ==
LOC: CARD 11:30
PROVIDERS: ATTEND Family Medicine
DX: R00.0 Tachycardia, unspecified (principal); R00.1 Bradycardia, unspecified
CPT/HCPCS: 93225; 93226

== ENCOUNTER → 2020-11-06 | Outpatient (CLI) | payer BC ==
--- NOTE | 2020-11-06 11:09 | Diagnostic Imaging Report ---
INDICATION: Palpitations tachycardia. COMPARISON: 10/09/2014 FINDINGS: Frontal and lateral views of the chest demonstrate normal heart size and pulmonary vascularity. The lungs are clear. There are no signs of infiltrate, pleural effusions or pneumothoraces. The visualized osseous structures show no acute abnormalities. IMPRESSION: 1. No acute process. No signs of infiltrates, effusions or pneumothoraces. Dictated by: Dictated on workstation # [id number]
== END ==
LOC: CARD 10:08
PROVIDERS: ATTEND Physician Assistant
DX: R00.2 Palpitations (principal); R00.0 Tachycardia, unspecified
CPT/HCPCS: 71046; 93005

== ENCOUNTER 2020-11-09 17:55 | Emergency (ER) | payer OTHER, BC ==
[~2020-11-09] VITALS: Ht 165 cm; Wt 75.0 kg
[2020-11-09 18:04] VITALS: BP 154/94
--- NOTE | 2020-11-09 18:15 | ED Lower Extremity ---
General Chief Complaint: Lower Extremity Stated Complaint: L ANKLE PAIN Nursing Triage Note: C/o L ankle pain after hurting it Saturday 11/04 at work. Nursing Sepsis Screen: No Definite Risk Source: patient Exam Limitations: no limitations History of Present Illness Date Seen by Provider: Nov 09, 2020 Time Seen by Provider: 18:13 Initial Comments To ER with left lateral ankle and foot pain after twisting it while at work at [facility] on Wednesday of this past week. Was seen by the nurse practitioner on site and believed to be sprained. He states that they told him that if it was broken he would not likely be able to walk on it. 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 Onset: last week Severity: moderate Pain/Injury Location: left foot, left ankle Method of Injury: twisted Modifying Factors: Worse With Movement Allergies and Home Medications Allergies Coded Allergies: morphine (Unverified Allergy, Mild, 04/13/09) Iodinated Contrast Media - IV Dye (Verified Allergy, Unknown, 10/31/14) Home Medications Cephalexin 500 Mg Capsule, 500 MG PO TID Prescribed by: TYLER JONES on 11/03/15 1108 Levetiracetam 1,000 Mg Tablet, 2,000 MG PO BID Prescribed by: ABDON HAYES on 11/06/14 1219 Phenytoin Sodium 30 Mg Capsule, 16 CAP PO HS Prescribed by: ABDON HAYES on 11/06/14 1224 Patient Home Medication List Home Medication List Reviewed: Yes Review of Systems Constitutional: see HPI EENTM: see HPI Respiratory: no symptoms reported Cardiovascular: no symptoms reported Genitourinary: no symptoms reported Musculoskeletal: see HPI Skin: no symptoms reported Past Pobwsay-Nsavbq-Pldykp Hx Patient Social History Alcohol Use: Denies Use Smoking Status: Never a Smoker Recent Infectious Disease Expo: No Recent Hopitalizations: No Immunizations Up To Date Tetanus Booster (TDap): More than 5yrs Seasonal Allergies Seasonal Allergies: No Past Medical History Surgeries: Yes (ELBOW, Excision of brain tumor) Appendectomy, Gallbladder, Tonsillectomy Respiratory: Yes Asthma Cardiac: Yes Hypertension Neurological: Yes (TUMOR RESECTION ON 10/16/14) Reproductive Disorders: No Sexually Transmitted Disease: No HIV/AIDS: No Gastrointestinal: Yes Gall Bladder Disease Musculoskeletal: No Endocrine: No Cancer: Yes (intracranial glioma) Psychosocial: No Integumentary: No Blood Disorders: No (6WKS OLD HAD BLOOD TRANSFUSION) Adverse Reaction/Blood Tranf: No Family Medical History Asthma 19 MOTHER G8 BROTHER Diabetes mellitus 19 MOTHER No Pertinent Family Hx Physical Exam Vital Signs Vital Signs - First Documented 11/09/20 18:04 Temp 36.4 Pulse 84 Resp 18 B/P (MAP) 154/94 (114) Pulse Ox 99 Capillary Refill : Less Than 3 Seconds Height, Weight, BMI Height: 5'6.00" Weight: 174lbs. 0oz. 78.023310fi; 27.00 BMI Method:Stated General Appearance: WD/WN, no apparent distress Neck: non-tender, full range of motion Respiratory: no respiratory distress, no accessory muscle use Hips: bilateral hip non-tender, bilateral hip normal inspection, bilateral hip normal range of motion Legs: bilateral leg non-tender, bilateral leg normal inspection, bilateral leg normal range of motion Knees: bilateral knee non-tender, bilateral knee normal inspection, bilateral knee normal range of motion Ankles: left ankle pain, left ankle soft tissue tenderness, left ankle swelling, left ankle other (Yellowish-purple ecchymosis to the lateral malleolus and extending down over the fourth and fifth metatarsals of the left foot consistent with a subacute injury) Feet: left foot soft tissue tenderness, left foot swelling; bilateral foot other Neurologic/Psychiatric: alert, normal mood/affect, oriented x 3 Skin: normal color, warm/dry Procedures/Interventions Suture Size: 5-0 Progress/Results/Core Measures Results/Orders My Orders Orders - TYLER JONES APRN Ankle, Left, 3 Views (11/09/20 18:11) Foot, Left, 3 Views (11/09/20 18:11) Vital Signs/I&O 11/09/20 18:04 Temp 36.4 Pulse 84 Resp 18 B/P (MAP) 154/94 (114) Pulse Ox 99 Blood Pressure Mean: 114 Departure Impression Primary Impression: Ankle sprain Disposition: 01 HOME, SELF-CARE Condition: Stable Departure-Patient Inst. Decision time for Depature: 18:15 Referrals: NO,LOCAL PHYSICIAN (PCP) Primary Care Physician STEPHANIE MOHAMUD (Family) Primary Care Physician Patient Instructions: Ankle Sprain (DC) TYLER JONES APRN Nov 09, 2020 18:15
--- NOTE | 2020-11-09 18:47 | Diagnostic Imaging Report ---
INDICATION: Lateral malleolus swelling and bruising, pain. EXAMINATION: Left ankle, 11/09/2020. COMPARISON: 03/01/2016. FINDINGS: 3 views of the ankle demonstrate soft tissue swelling laterally. No fracture or dislocation. The ankle mortise is intact. IMPRESSION: No acute osseous abnormality. Dictated by: Dictated on workstation # [id number]
--- NOTE | 2020-11-09 18:47 | Diagnostic Imaging Report ---
INDICATION: Injury, bruising and swelling. EXAMINATION: Left foot, 11/09/2020. FINDINGS: 3 views of the foot. There is no evidence for an acute fracture or dislocation. The joint spaces are well maintained. There is no significant soft tissue swelling. IMPRESSION: No acute process. Dictated by: Dictated on workstation # [id number]
== END 2020-11-09 18:28 | disposition home or self-care (01) ==
LOC: EDUNIT# 17:55 → ER 17:58
DX: S93.402A Sprain of unspecified ligament of left ankle, initial encounter (principal); J45.909 Unspecified asthma, uncomplicated; I10 Essential (primary) hypertension; X50.1XXA Overexertion from prolonged static or awkward postures, initial encounter; Y99.0 Civilian activity done for income or pay
CPT/HCPCS: 73610; 73630

== ENCOUNTER 2020-12-04 10:30 | Outpatient (RCR) | payer BC ==
[~2020-12-04 10:30] MED LIST changes: -DOXY100C2 PO; +DOXY100C5 PO
--- NOTE | 2021-01-13 10:57 | 30 Day Event Recorder ---
30-DAY EVENT RECORDER 30-DAY MOBILE CARDIAC OUTPATIENT TELEMETRY DATE OF PROCEDURE: 12/05/2020-01/03/2021. INDICATION: Palpitations. PROCEDURE: A 30-day mobile cardiac outpatient telemetry was obtained for a total of 10 days. 19 rhythm strips were presented for review. The study quality is adequate although only obtained for 10 out of the 30 days. RESULTS: 1. Baseline sinus rhythm with an average heart rate of 80 bpm, ranging from 41- 155 bpm. 2. There were rare, isolated premature supraventricular complexes representing 1% of the total recording time. 3. There were rare, isolated premature ventricular complexes representing less than 1% of the total recording time. 4. There were no pauses exceeding 2 seconds in duration. 5. There were 2 patient events that correlated to sinus tachycardia with heart rates ranging from 110-155 bpm. IMPRESSION: 1. This is a 30-day mobile cardiac outpatient telemetry that was obtained for a total of 10 days. 2. Baseline sinus rhythm with an average heart rate of 80 bpm, ranging from 41- 155 bpm with rare, isolated premature supraventricular and premature ventricular complexes without any high-grade ectopy. 3. There were 2 patient events are correlated to sinus tachycardia with heart rates ranging from 110-155 bpm. Certain portions of this document may have been dictated utilizing voice recognition technology. Inherent to this technology, typographical and grammatical errors may exist. As much as I am diligent to identify and correct these mistakes, some errors may remain in the document. KIESHA SERRA JR, MD Jan 13, 2021 10:57
[2021-01-20] MEDS ORDERED: DOXY100T2 PO (13:32)
== END 2021-03-04 | disposition home or self-care (01) ==
LOC: CARD 10:30
PROVIDERS: ATTEND Internal Medicine Cardiovascular Disease
DX: R00.2 Palpitations (principal)
CPT/HCPCS: 93306

== ENCOUNTER 2021-01-20 10:45 | Emergency (ER) | payer BC ==
[~2021-01-20] VITALS: Ht 167.7 cm; Wt 75.0 kg
[~2021-01-20 10:45] MED LIST changes: +DOXY100C2 PO; -DOXY100C5 PO
--- NOTE | 2021-01-20 11:40 | ED Cough/URI ---
General Chief Complaint: COVID19 Suspect/Confirmed Stated Complaint: SORE THROAT / COUGH Source: patient Exam Limitations: no limitations History of Present Illness Date Seen by Provider: Jan 20, 2021 Time Seen by Provider: 11:40 Allergies and Home Medications Allergies Coded Allergies: morphine (Unverified Allergy, Mild, 01/20/21) Iodinated Contrast Media (Verified Allergy, Unknown, 01/20/21) Patient Home Medication List Cephalexin (Keflex) 500 Mg Capsule, 500 MG PO TID Prescribed by: TYLER JONES on 11/03/15 1108 Levetiracetam (Levetiracetam) 1,000 Mg Tablet, 2,000 MG PO BID Prescribed by: ABDON HAYES on 11/06/14 1219 Phenytoin Sodium (Dilantin Er 30 Mg) 30 Mg Capsule, 16 CAP PO HS Prescribed by: ABDON HAYES on 11/06/14 1224 Past Ltlhgsh-Uzjtkx-Gectoq Hx Immunizations Up To Date Tetanus Booster (TDap): More than 5yrs Seasonal Allergies Seasonal Allergies: No Past Medical History Surgeries: Yes (ELBOW, Excision of brain tumor) Appendectomy, Gallbladder, Tonsillectomy Respiratory: Yes Asthma Cardiac: Yes Hypertension Neurological: Yes (TUMOR RESECTION ON 10/16/14) Reproductive Disorders: No Sexually Transmitted Disease: No HIV/AIDS: No Gastrointestinal: Yes Gall Bladder Disease Musculoskeletal: No Endocrine: No Cancer: Yes (intracranial glioma) Psychosocial: No Integumentary: No Blood Disorders: No (6WKS OLD HAD BLOOD TRANSFUSION) Adverse Reaction/Blood Tranf: No Family Medical History Asthma 19 MOTHER G8 BROTHER Diabetes mellitus 19 MOTHER No Pertinent Family Hx Physical Exam Vital Signs - First Documented 01/20/21 11:00 Temp 38.6 Pulse 98 Resp 18 B/P (MAP) 128/80 (96) Pulse Ox 98 O2 Delivery Room Air Capillary Refill : Height: 5'6.00" Weight: 174lbs. 0oz. 78.011847qh; 27.00 BMI Method:Stated Procedures/Interventions Suture Size: 5-0 Progress/Results/Core Measures Suspected Sepsis SIRS Temperature: Pulse: Respiratory Rate: Laboratory Tests 01/20/21 11:15: White Blood Count 13.4H Blood Pressure / Mean: Laboratory Tests 01/20/21 11:15: Creatinine 1.08, Platelet Count 186, Total Bilirubin 0.6 Results/Orders Lab Results Laboratory Tests Test 01/20/21 11:10 01/20/21 11:15 Range/Units Influenza Type A (RT-PCR) Not Detected Not Detecte Influenza Type B (RT-PCR) Not Detected Not Detecte SARS-CoV-2 RNA (RT-PCR) Not Detected Not Detecte White Blood Count 13.4 H 4.3-11.0 10^3/uL Red Blood Count 4.47 4.30-5.52 10^6/uL Hemoglobin 15.2 13.3-17.7 g/dL Hematocrit 43 40-54 % Mean Corpuscular Volume 96 80-99 fL Mean Corpuscular Hemoglobin 34 25-34 pg Mean Corpuscular Hemoglobin Concent 36 32-36 g/dL Red Cell Distribution Width 11.8 10.0-14.5 % Platelet Count 186 130-400 10^3/uL Mean Platelet Volume 9.7 9.0-12.2 fL Immature Granulocyte % (Auto) 0 % Neutrophils (%) (Auto) 82 H 42-75 % Lymphocytes (%) (Auto) 8 L 12-44 % Monocytes (%) (Auto) 9 0-12 % Eosinophils (%) (Auto) 1 0-10 % Basophils (%) (Auto) 0 0-10 % Neutrophils # (Auto) 10.9 H 1.8-7.8 10^3/uL Lymphocytes # (Auto) 1.1 1.0-4.0 10^3/uL Monocytes # (Auto) 1.2 H 0.0-1.0 10^3/uL Eosinophils # (Auto) 0.1 0.0-0.3 10^3/uL Basophils # (Auto) 0.0 0.0-0.1 10^3/uL Immature Granulocyte # (Auto) 0.0 0.0-0.1 10^3/uL Sodium Level 138 135-145 MMOL/L Potassium Level 3.8 3.6-5.0 MMOL/L Chloride Level 103 98-107 MMOL/L Carbon Dioxide Level 27 21-32 MMOL/L Anion Gap 8 5-14 MMOL/L Blood Urea Nitrogen 10 7-18 MG/DL Creatinine 1.08 0.60-1.30 MG/DL Estimat Glomerular Filtration Rate 81 BUN/Creatinine Ratio 9 Glucose Level 114 H 70-105 MG/DL Calcium Level 9.4 8.5-10.1 MG/DL Corrected Calcium 9.2 8.5-10.1 MG/DL Total Bilirubin 0.6 0.1-1.0 MG/DL Aspartate Amino Transf (AST/SGOT) 19 5-34 U/L Alanine Aminotransferase (ALT/SGPT) 24 0-55 U/L Alkaline Phosphatase 79 40-136 U/L Total Protein 7.2 6.4-8.2 GM/DL Albumin 4.2 3.2-4.5 GM/DL My Orders Orders - VALERIA STEVENS APRN Covid 19 Inhouse Test (01/20/21 11:32) Influenza A And B By Pcr (01/20/21 11:32) Isolation Central Supply Req (01/20/21 11:32) Acetaminophen Tablet (Tylenol Tablet) (01/20/21 11:45) Cbc With Automated Diff (01/20/21 12:30) Comprehensive Metabolic Panel (01/20/21 12:30) Chest 1 View, Ap/Pa Only (01/20/21 12:30) Medications Given in ED Current Medications Medications Dose Ordered Sig/Edmond Route Start Time Stop Time Status Last Admin Dose Admin Acetaminophen 1,000 mg ONCE ONCE PO 01/20/21 11:45 01/20/21 11:46 DC 01/20/21 11:58 1,000 MG Vital Signs/I&O 01/20/21 01/20/21 01/20/21 11:00 11:00 11:58 Temp 38.6 38.6 Pulse 98 Resp 18 B/P (MAP) 128/80 (96) Pulse Ox 98 O2 Delivery Room Air Capillary Refill : Departure Impression Primary Impression: Pneumonia Disposition: HOME, SELF-CARE Condition: Stable Departure-Patient Inst. Decision time for Depature: 13:31 Referrals: NO,LOCAL PHYSICIAN (PCP) Primary Care Physician STEPHANIE MOHAMUD (Family) Primary Care Physician Patient Instructions: Community-Acquired Pneumonia in Adults Add. Discharge Instructions: Plan: 1. Follow up with your doctor and have COVID repeated if symptoms persist over the next 3-4 days. 2. Take Doxycycline 100mg by mouth twice a day for the next 7 days. 3. May take Tylenol or Ibuprofen as needed for pain per package. 4. Return to ER for any new, concerning, or worsening symptoms. All discharge instructions reviewed with patient and/or family. Voiced understanding. Scripts Doxycycline Hyclate (Doxycycline Hyclate) 100 Mg Tablet 100 MG PO BID for 7 Days, #20 TAB 0 Refills Prov: VALERIA STEVENS APRN 01/20/21 VALERIA STEVENS APRN Jan 20, 2021 11:40
[2021-01-20] MEDS ORDERED: ACETAMINOPHEN 500 MG TAB (TYLENOL) PO ONE (11:45)
[2021-01-20 12:40] LABS: ALBUMIN 4.2 GM/DL (3.2-4.5); POTASSIUM 3.8 MMOL/L (3.6-5.0)
[2021-01-20 12:41] LABS: CALCIUM 9.4 MG/DL (8.5-10.1)
[2021-01-20 12:43] LABS: TOTAL PROTEIN 7.2 GM/DL (6.4-8.2)
[2021-01-20 12:44] LABS: BILIRUBIN,TOTAL 0.6 MG/DL (0.1-1.0)
[2021-01-20 12:46] LABS: CREATININE SERUM 1.08 MG/DL (0.60-1.30)
[2021-01-20 12:48] LABS: BASOPHILS % (AUTO) 0 % (0-10); EOSINOPHILS # (AUTO) 0.1 10^3/uL (0.0-0.3); EOSINOPHILS % (AUTO) 1 % (0-10); HEMATOCRIT 43 % (40-54); HEMOGLOBIN 15.2 g/dL (13.3-17.7); LYMPHOCYTES # (AUTO) 1.1 10^3/uL (1.0-4.0); LYMPHOCYTES % (AUTO) 8 % (12-44); MEAN CORPUSCULAR HEMOGLOBIN 34 pg (25-34); MEAN CORPUSCULAR HGB CONC 36 g/dL (32-36); MEAN CORPUSCULAR VOLUME 96 fL (80-99); MEAN PLATELET VOLUME 9.7 fL (9.0-12.2); MONOCYTES # (AUTO) 1.2 10^3/uL (0.0-1.0); MONOCYTES % (AUTO) 9 % (0-12); NEUTROPHILS # (AUTO) 10.9 10^3/uL (1.8-7.8); NEUTROPHILS % (AUTO) 82 % (42-75); PLATELET COUNT 186 10^3/uL (130-400); WHITE BLOOD COUNT 13.4 10^3/uL (4.3-11.0)
[2021-01-20] MEDS ORDERED: DOXY100T2 PO (13:32)
--- NOTE | 2021-01-20 13:35 | Diagnostic Imaging Report ---
EXAMINATION: Chest 1 view HISTORY: Cough. Fever. COMPARISON: 12/21/2010. FINDINGS: The lung volumes are normal. No focal consolidation is seen. No large pleural effusion or pneumothorax is seen. The cardiomediastinal silhouette is normal in size and contour. No acute osseous abnormality is seen. IMPRESSION: 1. No acute pleuroparenchymal process. Dictated by: Dictated on workstation # [id number]
[2021-01-20 13:45] VITALS: BP 123/89
== END 2021-01-20 13:45 | disposition home or self-care (01) ==
LOC: EDUNIT# 10:45 → ER 10:47
DX: J18.9 Pneumonia, unspecified organism (principal); I10 Essential (primary) hypertension; J45.909 Unspecified asthma, uncomplicated; Z20.822 Contact with and (suspected) exposure to COVID-19
CPT/HCPCS: 36415; 71045; 80053; 85025; 87040; 87636

== ENCOUNTER → 2021-01-30 | Day surgery (SDC) | payer BC ==
[~2021-01-30] VITALS: Ht 167.7 cm; Wt 74.0 kg
[~2021-01-30] MED LIST changes: +DOXY100T2 PO; +LIDOCAINE 1% INJ 20 ML 20 ML VIAL ONE
[2021-01-30 09:40] VITALS: BP 119/83
--- NOTE | 2021-01-30 11:20 | Cardiac Procedure Note ---
Cardiology Procedures Date of Procedure 01/30/21 IMPLANTABLE LOOP RECORDER INSERTION INDICATION: Tachycardia. PROCEDURE: After informed consent and in the fasting state, the left pectoral area was cleaned and prepped in the usual sterile fashion. I subsequently infiltrated the skin in the fourth intercostal space close to the midclavicular line with 20 mL of 2% lidocaine. I subsequently made an incision in the skin using the Medtronic LINQ insertion kit. I subsequently inserted a LINQ II implantable loop recorder subcutaneously utilizing the insertion tool, serial # [id number]. The skin was closed with Dermabond and a sterile dressing was applied. The device was interrogated and there was good R wave sensing. IMPRESSION: 1. Status post implantable loop recorder insertion with a Medtronic LINQ II device, serial number [id number]. KIESHA SERRA JR, MD Jan 30, 2021 11:20
== END ==
LOC: CATH 10:00
PROVIDERS: ATTEND Internal Medicine Cardiovascular Disease
DX: R00.2 Palpitations (principal); R07.9 Chest pain, unspecified; R00.0 Tachycardia, unspecified; G40.909 Epilepsy, unspecified, not intractable, without status epilepticus; E66.3 Overweight; Z87.891 Personal history of nicotine dependence; Z90.49 Acquired absence of other specified parts of digestive tract; Z90.89 Acquired absence of other organs; Z79.899 Other long term (current) drug therapy; Z83.3 Family history of diabetes mellitus; Z82.49 Family history of ischemic heart disease and other diseases of the circulatory system

== ENCOUNTER → 2021-04-02 | Outpatient (CLI) | payer BC ==
[~2021-04-02] MED LIST changes: -DOXY100C2 PO; +DOXY100C5 PO; -LIDOCAINE 1% INJ 20 ML 20 ML VIAL ONE
== END ==
LOC: RAD 08:53
PROVIDERS: ATTEND Physician Assistant
DX: Z53.9 Procedure and treatment not carried out, unspecified reason (principal)

== ENCOUNTER → 2021-06-10 | Outpatient (CLI) | payer BC ==
[2021-06-10 08:24] LABS: BASOPHILS # (AUTO) 0.1 10^3/uL (0.0-0.1); BASOPHILS % (AUTO) 1 % (0-10); EOSINOPHILS # (AUTO) 0.3 10^3/uL (0.0-0.3); EOSINOPHILS % (AUTO) 3 % (0-10); HEMATOCRIT 42 % (40-54); LYMPHOCYTES # (AUTO) 2.6 10^3/uL (1.0-4.0); LYMPHOCYTES % (AUTO) 34 % (12-44); MEAN CORPUSCULAR HEMOGLOBIN 34 pg (25-34); MEAN CORPUSCULAR HGB CONC 36 g/dL (32-36); MEAN CORPUSCULAR VOLUME 95 fL (80-99); MONOCYTES % (AUTO) 13 % (0-12); NEUTROPHILS # (AUTO) 3.7 10^3/uL (1.8-7.8); NEUTROPHILS % (AUTO) 49 % (42-75); PLATELET COUNT 215 10^3/uL (130-400); WHITE BLOOD COUNT 7.6 10^3/uL (4.3-11.0)
[2021-06-10 08:44] LABS: ALBUMIN 4.1 GM/DL (3.2-4.5); BILIRUBIN,TOTAL 0.4 MG/DL (0.1-1.0); CALCIUM 9.4 MG/DL (8.5-10.1); CREATININE SERUM 1.1 MG/DL (0.60-1.30); POTASSIUM 4.1 MMOL/L (3.6-5.0)
== END ==
LOC: LABNPT 08:14
PROVIDERS: ATTEND Internal Medicine
DX: R53.83 Other fatigue (principal); R11.2 Nausea with vomiting, unspecified; R19.7 Diarrhea, unspecified
CPT/HCPCS: 80053; 85025; 87635; 87804

== ENCOUNTER → 2021-06-10 | Outpatient (CLI) | payer BC | LOC: LAB 07:55 | PROVIDERS: ATTEND Physician Assistant | DX: R53.83 Other fatigue (principal); R11.2 Nausea with vomiting, unspecified; R19.7 Diarrhea, unspecified; Z20.822 Contact with and (suspected) exposure to COVID-19 ==

== ENCOUNTER → 2021-08-06 | Outpatient (CLI) | payer BC ==
[~2021-08-06] MED LIST changes: +GADOTERATE 0.5 MMOL/ML (CLARISCAN) 20 ML VIAL IV ONE
--- NOTE | 2021-08-06 11:00 | Diagnostic Imaging Report ---
PROCEDURE: MR imaging of the brain with and without contrast. TECHNIQUE: Multiplanar, multisequence MR imaging of the brain was performed with and without contrast. INDICATION: History of brain tumor with surgery in 2015. Follow-up. COMPARISON: 01/03/2015. FINDINGS: Postsurgical changes of right temporal craniotomy and mass resection from the lateral right frontal lobe are visualized. There is gliosis surrounding the surgical bed. No abnormal enhancement is visualized. No acute ischemia or hemorrhage. The ventricles, cortical sulci, and basilar cisterns are symmetric and unremarkable. The sellar and suprasellar regions have a normal appearance. The brainstem and posterior fossa are unremarkable. Mild mucosal thickening is seen in the left maxillary sinus. The mastoid air cells demonstrate normal signal characteristics. The globes and orbits are symmetric and unremarkable. IMPRESSION: 1. No acute ischemia, mass, or hemorrhage. No abnormal enhancement. 2. Postsurgical changes of right temporal craniotomy and mass resection from the lateral aspect of the right frontal lobe. There is surrounding gliosis without abnormal enhancement. Recommend continued follow-up as indicated. Dictated by: Dictated on workstation # [id number]
== END ==
LOC: RAD 09:30
PROVIDERS: ATTEND Physician Assistant
DX: R51.9 Headache, unspecified (principal); H53.9 Unspecified visual disturbance; Z85.841 Personal history of malignant neoplasm of brain; Z98.890 Other specified postprocedural states
CPT/HCPCS: 70553

== ENCOUNTER 2022-03-29 19:46 | Emergency (ER) | payer BC ==
[~2022-03-29] VITALS: Ht 165 cm; Wt 65.3 kg
[~2022-03-29 19:46] MED LIST changes: -GADOTERATE 0.5 MMOL/ML (CLARISCAN) 20 ML VIAL IV ONE
--- NOTE | 2022-03-29 20:35 | ED Back Pain ---
General Chief Complaint: Back Problems Stated Complaint: BACK PAIN Nursing Triage Note: PT AMBULATES TO ROOM WITH ASSISTANCE OF ER STAFF; PT REPORTS THAT HE WAS STANDING UP AND WAS WALKING BACK FROM THE KITCHEN WHEN HE HAD SUDDEN ONSET OF SEVERE SHARP PAIN IN HIS LUMBAR SPINE THAT RADIATED INTO HIS L LEG; PT ATTEMPTED TO SHOWER AND TOOK OTC MEDS WITHOUT IMPROVEMENT IN SYMPTOMS; PT ADVISES PAIN HAS PERSISTED AND BECOME MORE SEVERE; PT DENIES ANY URINARY OR BOWEL INCONTINENCE Source of Information: Patient Exam Limitations: No Limitations (MICHAELA JULIO APRN) History of Present Illness Date Seen by Provider: Mar 29, 2022 Time Seen by Provider: 20:35 Location: Lumbar Spine, Paraspinous Muscles Timing/Duration: 1-3 Hours Severity: Severe Pain/Injury Location: Back Radiation: Buttocks, Lower Legs (left side only) Method of Injury: Unknown Modifying Factors: Worse With Movement; Improves With Rest Associated Symptoms: muscle spasms; No fever, No weakness, No numbness in legs/feet, No tingling in legs/feet, No sensory/motor loss; lower back pain; No loss of bladder control, No loss of bowel control (MICHAELA JULIO APRN) Allergies and Home Medications Allergies Coded Allergies: morphine (Unverified Allergy, Mild, 01/20/21) Iodinated Contrast Media (Verified Allergy, Unknown, 01/20/21) Patient Home Medication List Home Medication List Reviewed: Yes (MICHAELA JULIO APRN) Cephalexin (Keflex) 500 Mg Capsule, 500 MG PO TID Prescribed by: TYLER JONES on 11/03/15 1108 Cyclobenzaprine HCl (Cyclobenzaprine HCl) 10 Mg Tablet, 10 MG PO TID Prescribed by: Michaela Julio on 03/29/222154 Last Action: New Order Doxycycline Hyclate (Doxycycline Hyclate) 100 Mg Tablet, 100 MG PO BID Prescribed by: VALERIA STEVENS on 01/20/21 1332 Levetiracetam (Levetiracetam) 1,000 Mg Tablet, 2,000 MG PO BID Prescribed by: ABDON HAYES on 11/06/14 1219 Naproxen (Naproxen) 500 Mg Tablet, 500 MG PO Q12H Prescribed by: Michaela Julio on 03/29/222156 Last Action: New Order Phenytoin Sodium (Dilantin Er 30 Mg) 30 Mg Capsule, 16 CAP PO HS Prescribed by: ABDON HAYES on 11/06/14 1224 Review of Systems Constitutional: no symptoms reported EENTM: see HPI Respiratory: no symptoms reported Cardiovascular: no symptoms reported Gastrointestinal: No abdominal pain, No diarrhea, No nausea, No vomiting Genitourinary: no symptoms reported Musculoskeletal: back pain, muscle pain, muscle stiffness, muscle cramps; No muscle twitching, No muscle weakness, No neck pain Psychiatric/Neurological: No Symptoms Reported (MICHAELA JULIO APRN) Past Rkhrlsz-Xzwrqi-Xgtyoa Hx Patient Social History Tobacco Use?: No Substance use?: No Alcohol Use?: No Pt feels they are or have been: Yes (MICHAELA JULIO APRN) Immunizations Up To Date Tetanus Booster (TDap): More than 5yrs Influenza Vaccine Up-to-Date: No; Not Current First/Initial COVID19 Vaccinat: DECEMBER 2020 Second COVID19 Vaccination Horacio: 2020 COVID19 Vaccine Hand Thermal Cutter: GIBRAN (MICHAELA JULIO APRN) Seasonal Allergies Seasonal Allergies: No (MICHAELA JULIO APRN) Past Medical History Surgeries: Yes (ELBOW, Excision of brain tumor) Appendectomy, Gallbladder, Tonsillectomy Respiratory: Yes Asthma Cardiac: Yes Palpitations Neurological: Yes (TUMOR RESECTION ON 10/16/14) Brain Tumor, Concussion, Headaches /Migraines, Seizure Disorder Reproductive Disorders: No Sexually Transmitted Disease: No HIV/AIDS: No Gastrointestinal: Yes Gall Bladder Disease Musculoskeletal: No Endocrine: No Cancer: Yes (intracranial glioma) Brain Psychosocial: No Integumentary: No Blood Disorders: No (6WKS OLD HAD BLOOD TRANSFUSION) Adverse Reaction/Blood Tranf: No (MICHAELA JULIO APRN) Family Medical History Asthma 19 MOTHER G8 BROTHER Diabetes mellitus 19 MOTHER No Pertinent Family Hx (MICHAELA JULIO APRN) Physical Exam Vital Signs Vital Signs - First Documented 03/29/22 20:08 Pulse 74 Resp 16 B/P (MAP) 129/76 (93) Pulse Ox 98 O2 Delivery Room Air (EZEQUIEL HARLEY MD) Vital Signs Capillary Refill : Less Than 3 Seconds (MICHAELA JULIO APRN) Height, Weight, BMI Height: 5'6.00" Weight: 174lbs. 0oz. 78.987560ie; 23.00 BMI Method:Stated General Appearance: No Apparent Distress, WD/WN Neck: Full Range of Motion, Normal Inspection, Non Tender, Supple Cardiovascular: Regular Rate, Rhythm, No Edema Respiratory: Chest Non Tender, Lungs Clear, Normal Breath Sounds, No Accessory Muscle Use Gastrointestinal: Normal Bowel Sounds, No Organomegaly, No Pulsatile Mass, Non Tender Back: No CVA Tenderness, Muscle Spasm (left lumbar paraspinal); No Vertebral Tenderness Extremity: Normal Capillary Refill, Normal Inspection, Normal Range of Motion, Non Tender Neurologic/Psychiatric: Alert, Oriented x3, No Motor/Sensory Deficits, Normal Mood/Affect Skin: Normal Color, Warm/Dry (MICHAELA JULIO APRN) Procedures/Interventions Suture Size: 5-0 (MICHAELA JULIO APRN) Progress/Results/Core Measures Results/Orders Medications Given in ED Current Medications Medications Dose Ordered Sig/Edmond Route Start Time Stop Time Status Last Admin Dose Admin Cyclobenzaprine HCl 10 mg ONCE ONCE PO 03/29/22 20:45 03/29/22 20:46 DC 03/29/22 20:43 10 MG Ketorolac Tromethamine 60 mg ONCE ONCE IM 03/29/22 20:45 03/29/22 20:46 DC 03/29/22 20:43 60 MG Tramadol HCl 50 mg ONCE ONCE PO 03/29/22 21:30 03/29/22 21:31 DC 03/29/22 21:29 50 MG (EZEQUIEL HARLEY MD) Vital Signs/I&O 03/29/22 03/29/22 20:08 22:00 Pulse 74 Resp 16 B/P (MAP) 129/76 (93) 118/80 Pulse Ox 98 O2 Delivery Room Air (EZEQUIEL HARLEY MD) Blood Pressure Mean: 93 Progress Progress Note : Progress Note Pt reports improvement of pain with toradol, tramadol, cyclobenzaprine. Denies known injury. Neurologically intact. Pt resting comfortably in recliner on reexam. (MICHAELA JULIO APRN) Departure Impression Primary Impression: Low back pain Disposition: 01 HOME, SELF-CARE Condition: Improved Departure-Patient Inst. Decision time for Depature: 21:53 (MICHAELA JULIO APRN) Referrals: NO,LOCAL PHYSICIAN (PCP) Primary Care Physician STEPHANIE MOHAMUD (Family) Primary Care Physician Patient Instructions: Low Back Pain (DC) Add. Discharge Instructions: Tylenol 500mg every 4 hours as needed. Naproxen twice daily. Cyclobenzaprine three times daily as needed. Do not drive or drink alcohol while taking this medication. Stretching and ROM exercises 3-4 times/day. Heat to affected area as needed. Follow up with PCP if no resolution in 1-2 weeks. Follow up with new/worsening concerns All discharge instructions reviewed with patient and/or family. Voiced understanding. Scripts Naproxen (Naproxen) 500 Mg Tablet 500 MG PO Q12H for Renal Colic for 10 Days, #20 TAB Prov: MICHAELA JULIO APRN 03/29/22 Cyclobenzaprine HCl (Cyclobenzaprine HCl) 10 Mg Tablet 10 MG PO TID for Muscle Spasms, #15 TAB Prov: MICHAELA JULIO APRN 03/29/22 ATTENDING PHYSICIAN NOTE: I was physically present as attending physician in the emergency department during the care of this patient, but I was not directly involved in the decision making or delivery of care for this patient. (EZEQUIEL HARLEY MD) MICHAELA JULIO APRN Mar 29, 2022 20:35 EZEQUIEL HARLEY MD Mar 30, 2022 07:06
[2022-03-29] MEDS ORDERED: CYCLOBENZAPRINE 10 MG (FLEXERIL) TAB PO ONE (20:45)
[2022-03-29] MEDS ORDERED: KETOROLAC 60 MG/2 ML VIAL IM ONE (20:45)
[2022-03-29] MEDS ORDERED: CYCL10TA25 PO (21:55)
[2022-03-29] MEDS ORDERED: NAPR-915 PO (21:57)
[2022-03-29 22:00] VITALS: BP 118/80
== END 2022-03-29 22:00 | disposition home or self-care (01) ==
LOC: EDUNIT# 19:46 → ER 19:47
DX: M54.50 Low back pain, unspecified (principal); Z88.5 Allergy status to narcotic agent
CPT/HCPCS: 99284

== ENCOUNTER → 2022-03-31 | Outpatient (CLI) | payer BC ==
[~2022-03-31] MED LIST changes: +CYCL10TA25 PO; +NAPR-915 PO
--- NOTE | 2022-03-31 07:51 | Diagnostic Imaging Report ---
Indication: Low back pain and lower extremity weakness. COMPARISON: None available. FINDINGS: Alignment of the lumbar spine is normal. The vertebral body heights are maintained. The facets are normally aligned. There are no findings of a pars defect. The disc spaces appear preserved. The visualized portion of the pelvic ring appears intact. IMPRESSION: 1. Normal height and alignment of lumbar spine. Dictated by: Dictated on workstation # [id number]
== END ==
LOC: RAD 01:49
PROVIDERS: ATTEND Physician Assistant
DX: M54.50 Low back pain, unspecified (principal); R53.1 Weakness
CPT/HCPCS: 72100

== ENCOUNTER → 2022-04-08 | Outpatient (CLI) | payer BC ==
--- NOTE | 2022-04-08 08:35 | Diagnostic Imaging Report ---
Clinical Indication: Patient with history brain tumor surgery. Patient having increased headaches recently. Exam: MRI of the brain performed without IV contrast. Sequences include axial DWI, ADC map, axial T1, axial T2, axial FLAIR, coronal gradient echo, sagittal T1, and coronal ROJAS FSPGR with axial and sagittal reformatted images. Comparison: MRI of the brain with and without contrast dated 08/06/2021.. Findings: There is no evidence of acute cerebral infarct or intracranial hemorrhage, brain herniation or midline shift. Stable postop changes with craniotomy involving the right side of the head. Stable parenchymal resection changes involving the right temporal lobe, right frontal lobe right insular region with stable small amount of high T2 signal gliosis. There is no other significant brain parenchymal abnormality. There is no hydrocephalus. Basal cisterns are unremarkable. The pilot point of Arndt vascular structures show no gross abnormality as visualized. The pituitary gland, sella, and suprasellar regions are unremarkable as visualized. Besides postoperative changes, extracranial soft tissues, skull, and orbits are unremarkable. Paranasal sinuses show no significant disease. Mastoid air cells are clear. IMPRESSION: 1.: Stable MRI of the brain with no evidence of interval acute intracranial process. 2: Stable postop changes with parenchymal resection changes to the right frontal, anterior right temporal and insular region and stable gliosis. Dictated by: Dictated on workstation # [id number]
--- NOTE | 2022-04-08 09:27 | Diagnostic Imaging Report ---
PROCEDURE: MRI lumbar spine without contrast. TECHNIQUE: Multiplanar, multisequence MRI of the lumbar spine was performed without contrast. INDICATION: Low back pain. COMPARISON: None. FINDINGS: 5 lumbar type vertebral bodies are visualized with the last well-formed disc space designated L5-S1. No acute fracture or dislocation is seen in the lumbar spine. Alignment is anatomic. Vertebral body heights and disc spaces are well-maintained. The bone marrow signal is normal. The conus terminates at the T12 level. No masses are seen associated with the conus or nerve roots of the cauda equina. No epidural collections are identified. Subarticular disc extrusion is seen at the L1-L2 level on the left resulting in no spinal canal narrowing and moderate left lateral recess stenosis with no right and [id number] left foraminal narrowing. The remainder of the lumbar spine demonstrates no significant degenerative changes. Paravertebral soft tissues are unremarkable. IMPRESSION: 1. No acute fracture or dislocation in the lumbar spine. 2. Left subarticular disc extrusion at the L1-L2 level resulting in moderate left lateral recess stenosis and [id number] left foraminal narrowing. Dictated by: Dictated on workstation # [id number]
== END ==
LOC: RAD 07:32
PROVIDERS: ATTEND Physician Assistant
DX: M48.061 Spinal stenosis, lumbar region without neurogenic claudication (principal); M51.26 Other intervertebral disc displacement, lumbar region; R51.9 Headache, unspecified; R53.1 Weakness; Z85.841 Personal history of malignant neoplasm of brain
CPT/HCPCS: 70551; 72148

== ENCOUNTER 2022-04-30 10:07 | Outpatient (RCR) | payer BC | END 2022-05-16 | disposition home or self-care (01) | PROVIDERS: ATTEND Physician Assistant | DX: M54.16 Radiculopathy, lumbar region (principal) ==

== ENCOUNTER → 2022-08-14 | Outpatient (CLI) | payer BC | LOC: CARD 14:00 | PROVIDERS: ATTEND Internal Medicine Cardiovascular Disease | DX: I51.7 Cardiomegaly (principal) | CPT/HCPCS: 93306 ==

== ENCOUNTER → 2022-08-19 | Outpatient (CLI) | payer BC ==
[2022-08-19 14:00] VITALS: BP 120/75
--- NOTE | 2022-08-20 08:17 | Cardiology Stress Test Report ---
Stress Test Report Date of Procedure/Referring: Date of Procedure: Aug 19, 2022 PCP Marisel Marquez MD Admitting Physician Admitting Physician: Attending Physician: Angela Hector Baseline Heart Rate: 53 Baseline Blood Pressure: Blood Pressure Systolic: 120 Blood Pressure Diastolic: 75 Baseline EKG: Baseline EKG: NSR Summary/Conclusion: Summary: In summary, the patient started exercising with a baseline heart rate, blood pressure and EKG mentioned above Patient was able to exercise for a total of 9 minutes on Bryant protocol, METs 10.5 Maximum heart rate 165 Maximum blood pressure 178/84 Stress EKG, Minimal nondiagnostic changes Recovery EKG , Return to baseline Conclusion: 1. Good exercise tolerance for a total of 9 minutes on Bryant protocol, 10.5 METs, achieving 86 percent of maximum expected heart rate 2. Minimal nondiagnostic EKG changes with exercise returned to baseline during recovery 3. No arrhythmia was noted Copy Copies To 1: MARISEL MARQUEZ MD, BASHAR J MD Aug 20, 2022 08:16
== END ==
LOC: CARD 14:00
PROVIDERS: ATTEND Physician Assistant
DX: R00.2 Palpitations (principal)
CPT/HCPCS: 93017